=== PATIENT | female | born 1990 | race American Indian/Alaskan Native ===

== ENCOUNTER 2020-04-19 00:02 | Emergency (ER) | payer MEDICAID ==
--- NOTE | 2020-04-19 00:25 | Event Note ---
ED Screening Note Date of service: 04/19/20 ED Screening Note: 13-week patient presents with complaints of sudden onset of severe abdominal pain and vaginal bleeding She is A0 Currently following with an SAFETY ADMIN ASSISTANT per patient This initial assessment/diagnostic orders/clinical plan/treatment(s) is/are subject to change based on patients health status, clinical progression and re- assessment by fellow clinical providers in the ED. Further treatment and workup at subsequent clinical providers discretion. Patient/guardian urged not to elope from the ED as their condition may be serious if not clinically assessed and managed. Initial orders include: Labs Ultrasound
[2020-04-19 01:03] LABS: Basophils % (Auto) 0.3 % (0.0-1.8); Eosinophils # (Auto) 0.1 K/mm3 (0.0-0.4); Eosinophils % (Auto) 1.3 % (0.0-4.3); Hematocrit 40.1 % (30.3-42.9); Hemoglobin 13.1 gm/dl (10.1-14.3); Lymphocytes # (Auto) 2.3 K/mm3 (1.2-5.4); Lymphocytes % (Auto) 32.8 % (13.4-35.0); Mean Corpuscular HGB Conc 33 % (30-34); Mean Corpuscular Volume 89 fl (79-97); Monocytes # (Auto) 0.4 K/mm3 (0.0-0.8); Monocytes % (Auto) 5.9 % (0.0-7.3); Platelet Count 171 K/mm3 (140-440); Red Blood Count 4.52 M/mm3 (3.65-5.03); Red Cell Distribution Width 13.1 % (13.2-15.2)
[2020-04-19 01:20] LABS: Alanine Aminotransferase 12 units/L (7-56); Albumin 4.2 g/dL (3.9-5); Blood Urea Nitrogen 10 mg/dL (7-17); Calcium 9.3 mg/dL (8.4-10.2); Hemolysis Index 2
[2020-04-19 01:22] LABS: BUN/Creatinine Ratio 20
--- NOTE | 2020-04-19 01:23 | Emergency Department Report ---
ED HPI - General Chief complaint: Vaginal Bleeding Stated complaint: 13 WEEKS ;POSSIBLE MISCARRIAGE Time Seen by Provider: 04/19/20 00:54 Source: patient Mode of arrival: Ambulatory Limitations: No Limitations - History of Present Illness Initial comments: 29-year-old female, G4, P3, presents to the ED with vaginal bleeding. Patient s calvin she is 13 weeks . She reports onset of vaginal bleeding at approximately 9:30 PM this evening. She reports associated cramping with heavy bleeding and passage of clots while at home. Patient believes she has had a miscarriage. Patient reports she recently moved to [place] from [place], and has not yet established an [facility]. However, at 6 weeks gestation patient reports she was seen at [facility] and an ultrasound was done that showed a twin gestation IUP. MD Complaint: vaginal bleeding -: This evening Severity: moderate Quality: cramping Consistency: constant Improves with: none Worsens with: none Associated symptoms: vaginal bleeding Vaginal bleeding: clots :: Yes Number of weeks : 13 Pre- care: previous ultrasound confi - Related Data Previous Rx's Medication Instructions Recorded Last Taken Type Naproxen [Naprosyn] 500 mg PO BID #20 tablet 04/19/20 Unknown Rx traMADoL [Ultram] 50 mg PO Q6HR PRN #7 tablet 04/19/20 Unknown Rx ED Review of Systems ROS: Stated complaint: 13 WEEKS ;POSSIBLE MISCARRIAGE Other details as noted in HPI Comment: All other systems reviewed and negative Gastrointestinal: abdominal pain Genitourinary: as per HPI ED Past Medical Hx - Medications Home Medications: Home Medications Medication Instructions Recorded Confirmed Last Taken Type Naproxen [Naprosyn] 500 mg PO BID #20 tablet 04/19/20 Unknown Rx traMADoL [Ultram] 50 mg PO Q6HR PRN #7 tablet 04/19/20 Unknown Rx ED Physical Exam - General Limitations: No Limitations General appearance: alert, in no apparent distress - Head Head exam: Present: atraumatic, normocephalic - Eye Eye exam: Present: normal appearance, EOMI - ENT ENT exam: Present: mucous membranes moist - Neck Neck exam: Present: normal inspection - Respiratory Respiratory exam: Present: normal lung sounds bilaterally. Absent: respiratory distress - Cardiovascular Cardiovascular Exam: Present: regular rate, normal rhythm - GI/Abdominal GI/Abdominal exam: Present: soft, tenderness (Suprapubic). Absent: distended - External exam: Present: normal external exam Speculum exam: Present: vaginal bleeding, other (a few small clots removed from vault; oozing of blood from cervix) - Extremities Exam Extremities exam: Present: normal inspection - Neurological Exam Neurological exam: Present: alert, oriented X3 - Psychiatric Psychiatric exam: Present: normal affect, normal mood - Skin Skin exam: Present: warm, dry, intact, normal color ED Course Vital Signs 04/19/20 04/19/20 00:19 02:38 Temperature 97.9 F Pulse Rate 74 86 Respiratory 14 14 Rate Blood Pressure 96/57 Blood Pressure 113/50 [Right] O2 Sat by Pulse 99 99 Oximetry ED Medical Decision Making - Lab Data Result diagrams: 04/19/20 00:32 04/19/20 00:32 - Radiology Data Radiology results: report reviewed, image reviewed - Medical Decision Making 29-year-old female presents to ED with vaginal bleeding. Patient 13 weeks with twin gestation. Patient reports heavy bleeding with clots. hCG is 9000. Ultrasound shows thickened endometrium, no IUP, likely due to recent miscarriage. On speculum exam, a few clots were cleared from the vaginal vault, however no heavy vaginal bleeding present. Vital signs are stable. Hemoglobin is 13. Patient is Rh+. Will discharge at this time with instructions to follow-up with [facility]. Return precautions given. - Differential Diagnosis Ectopic, threatened , spontaneous Critical care attestation.: If time is entered above; I have spent that time in minutes in the direct care of this critically ill patient, excluding procedure time. ED Disposition Clinical Impression: Spontaneous miscarriage Disposition: - TO HOME OR SELFCARE Is pt being admited?: No Condition: Stable Instructions: Miscarriage, [id number], Managing Loss Prescriptions: Naproxen [Naprosyn] 500 mg PO BID #20 tablet traMADoL [Ultram] 50 mg PO Q6HR PRN #7 tablet PRN Reason: Pain Referrals: PRIMARY CARE, [Primary Care Provider] - 3-5 Days [facility] [Provider Group] - 2-3 Days Time of Disposition: 03:50
[2020-04-19 02:00] LABS: Bilirubin,Urine NEG (Negative); Blood,Urine LG (Negative); Color,Urine Red (Yellow); Urobilinogen,Urine < 2.0 mg/dL (<2.0)
[2020-04-19 02:02] LABS: Bacteria,Urine 1+ /HPF (Negative)
[2020-04-19 02:03] LABS: Protein,Urine >500 mg/dL (Negative); RBC,Urine > 182.0 /HPF (0.0-6.0)
[2020-04-19] MEDS ORDERED: HYDROcodone/ACETAMINOPHEN 5-325 MG TAB PO ONE (02:37)
--- NOTE | 2020-04-19 03:17 | Ultrasound Report ---
ULTRASOUND OBSTETRIC INDICATION / CLINICAL INFORMATION: bleeding in . TECHNIQUE: Transabdominal. COMPARISON: None available. FINDINGS: No IUP. Thickened heterogeneous endometrium measuring 2.2 cm. Uterus measures 9.7 x 4.6 x 8.1 cm. ADNEXA: No significant abnormality. FREE FLUID: None. ADDITIONAL FINDINGS: None. IMPRESSION: 1. No IUP. 2. Thickened irregular endometrium likely secondary to recent miscarriage Signer Name: Nikolai Hart MD Signed: 04/19/2020 3:12 AM Workstation Name: [id number]
[2020-04-19 04:07] VITALS: BP 119/60
== END 2020-04-19 04:05 | disposition home or self-care (01) ==
LOC: ED 00:02
DX: O03.9 Complete or unspecified spontaneous abortion without complication (principal); Z3A.13 13 weeks gestation of pregnancy; Z79.899 Other long term (current) drug therapy; Z88.8 Allergy status to other drugs, medicaments and biological substances
CPT/HCPCS: 36415; 76801; 80053; 81001; 84702; 85025; 86850; 86900; 86901; 87086

== ENCOUNTER 2020-05-07 16:28 | Emergency (ER) | payer MEDICAID ==
[2020-05-07 17:01] VITALS: BP 96/57
--- NOTE | 2020-05-07 17:33 | Emergency Department Report ---
ED Female HPI - General Chief complaint: Vaginal Bleeding Stated complaint: ABD PAIN Source: patient Mode of arrival: Ambulatory Limitations: No Limitations - History of Present Illness Initial comments: 29-year-old -[place] female presents to the emergency room reporting that she has heavy bleeding. Patient states she had a miscarriage on 04/19/2020 and had followed up with [facility] on 05/05/2020. Patient states she has gone through 16 pads today. Patient was seen here had an ultrasound that showed no IUP with hCG levels greater than 9000. MD Complaint: vaginal bleeding Onset/Timin -: week(s) Location: suprapubic Severity: moderate, severe Quality: cramping Consistency: constant Improves with: none Worsens with: none Are you Now?: No Associated Symptoms: vaginal bleeding, abdominal pain. denies: nausea/vomiting, fever/chills - Related Data Sexually active: Yes Previous Rx's Medication Instructions Recorded Last Taken Type Naproxen [Naprosyn] 500 mg PO BID #20 tablet 04/19/20 Unknown Rx traMADoL [Ultram] 50 mg PO Q6HR PRN #7 tablet 04/19/20 Unknown Rx Allergies Allergy/AdvReac Type Severity Reaction Status Date / Time ibuprofen Allergy Hives Verified 04/19/20 04:01 ED Review of Systems ROS: Stated complaint: ABD PAIN Other details as noted in HPI Comment: All other systems reviewed and negative ED Past Medical Hx - Past Medical History Previous Medical History?: No - Surgical History Past Surgical History?: No - Social History Smoking Status: Never Smoker Substance Use Type: None - Medications Home Medications: Home Medications Medication Instructions Recorded Confirmed Last Taken Type Naproxen [Naprosyn] 500 mg PO BID #20 tablet 04/19/20 Unknown Rx traMADoL [Ultram] 50 mg PO Q6HR PRN #7 tablet 04/19/20 Unknown Rx ED Physical Exam - General Limitations: No Limitations General appearance: alert, in no apparent distress - Head Head exam: Present: atraumatic, normocephalic - Eye Eye exam: Present: normal appearance - Neck Neck exam: Present: normal inspection - Respiratory Respiratory exam: Present: normal lung sounds bilaterally. Absent: respiratory distress - Cardiovascular Cardiovascular Exam: Present: regular rate, normal rhythm. Absent: systolic murmur, diastolic murmur, rubs, gallop - GI/Abdominal GI/Abdominal exam: Present: soft. Absent: distended, tenderness - Back Exam Back exam: Present: normal inspection - Neurological Exam Neurological exam: Present: alert, oriented X3, normal gait - Psychiatric Psychiatric exam: Present: normal affect, normal mood - Skin Skin exam: Present: warm, dry, intact, normal color. Absent: rash ED Course Vital Signs 05/07/20 17:00 Temperature 98.8 F Pulse Rate 71 Respiratory 16 Rate Blood Pressure 96/57 O2 Sat by Pulse 99 Oximetry ED Medical Decision Making - Lab Data Result diagrams: 05/07/20 17:43 - Medical Decision Making 29-year-old -[place] female presents to the emergency room reporting that she has heavy bleeding. Patient states she had a miscarriage on 04/19/2020 and had followed up with [facility] on 05/05/2020. Patient states she has gone through 16 pads today. Patient was seen here had an ultrasound that showed no I UP with hCG levels greater than 9000. hCG 238. No signs of anemia. Discussed with patient to follow-up with [facility]. Vital signs are stable. Critical care attestation.: If time is entered above; I have spent that time in minutes in the direct care of this critically ill patient, excluding procedure time. ED Disposition Clinical Impression: Vaginal bleeding, Miscarriage Disposition: DC-01 TO HOME OR SELFCARE Is pt being admited?: No Does the pt Need Aspirin: No Condition: Stable Instructions: Dysfunctional Uterine Bleeding Additional Instructions: hCG levels is 238. I recommend that you follow-up with your [facility]. Increase your fluid intake. Referrals: [facility] [Provider Group] - 3-5 Days Forms: Work/School Release Form(ED)
[2020-05-07 17:52] LABS: Basophils % (Auto) 0.3 % (0.0-1.8); Eosinophils % (Auto) 0.6 % (0.0-4.3); Hematocrit 39.7 % (30.3-42.9); Hemoglobin 13.2 gm/dl (10.1-14.3); Lymphocytes # (Auto) 1.4 K/mm3 (1.2-5.4); Lymphocytes % (Auto) 21.4 % (13.4-35.0); Mean Corpuscular HGB Conc 33 % (30-34); Mean Corpuscular Volume 89 fl (79-97); Monocytes # (Auto) 0.5 K/mm3 (0.0-0.8); Monocytes % (Auto) 7.3 % (0.0-7.3); Platelet Count 186 K/mm3 (140-440); Red Blood Count 4.48 M/mm3 (3.65-5.03); Red Cell Distribution Width 12.9 % (13.2-15.2)
[2020-05-07 18:46] LABS: Bilirubin,Urine NEG (Negative); Blood,Urine LG (Negative); Color,Urine Red (Yellow); Mucus,Urine 2+ /HPF; Urobilinogen,Urine < 2.0 mg/dL (<2.0)
[2020-05-07 18:48] LABS: RBC,Urine > 182.0 /HPF (0.0-6.0)
== END 2020-05-07 20:01 | disposition home or self-care (01) ==
LOC: ED 16:28
DX: N93.9 Abnormal uterine and vaginal bleeding, unspecified (principal); R10.2 Pelvic and perineal pain; Z79.899 Other long term (current) drug therapy; Z88.8 Allergy status to other drugs, medicaments and biological substances
CPT/HCPCS: 36415; 81001; 84702; 85025; 87086

== ENCOUNTER 2020-11-14 09:59 | Emergency (ER) | payer MEDICAID ==
[2020-11-14] MEDS ORDERED: ACETAMINOPHEN 325 MG TAB PO ONE (12:17)
--- NOTE | 2020-11-14 12:39 | Ultrasound Report ---
ULTRASOUND OBSTETRIC REASON FOR EXAM: 9 weeks, cramping, bleeding TECHNIQUE: Transabdominal and transvaginal ultrasound was performed to evaluate a first trimester pre gnancy. COMPARISON: 04/19/2020 FINDINGS: Uterus measures 9.2 x 3.3 x 5.1 cm. Endometrial stripe is not thickened, measuring 3 mm. No IUP is vi sualized. Normal sonographic appearance of the ovaries. No significant cystic or solid mass in either adnexa. No significant free fluid. IMPRESSION: No IUP visualized. Findings consistent with of unknown location. Findings could reflect an early intrauterine , occult ectopic , or recent spontaneous . In a hemodyna mically stable patient, recommend follow-up with pelvic ultrasound in 7-10 days. Signer Name: Alvin Amador MD Signed: 11/14/2020 12:35 PM Workstation Name: [id number]
[2020-11-14 12:50] LABS: Basophils % (Auto) 0.6 % (0.0-1.8); Eosinophils # (Auto) 0.1 K/mm3 (0.0-0.4); Eosinophils % (Auto) 3.6 % (0.0-4.3); Hematocrit 37.3 % (30.3-42.9); Hemoglobin 12.2 gm/dl (10.1-14.3); Lymphocytes # (Auto) 1.6 K/mm3 (1.2-5.4); Lymphocytes % (Auto) 39.8 % (13.4-35.0); Mean Corpuscular HGB Conc 33 % (30-34); Mean Corpuscular Volume 86 fl (79-97); Monocytes # (Auto) 0.4 K/mm3 (0.0-0.8); Monocytes % (Auto) 9.6 % (0.0-7.3); Platelet Count 191 K/mm3 (140-440); Red Blood Count 4.33 M/mm3 (3.65-5.03); Red Cell Distribution Width 13.7 % (13.2-15.2)
--- NOTE | 2020-11-14 13:13 | Emergency Department Report ---
ED HPI - General Chief complaint: Vaginal Bleeding Stated complaint: MISCARRIAGE Time Seen by Provider: 11/14/20 11:45 Source: patient Mode of arrival: Ambulatory Limitations: No Limitations - History of Present Illness Initial comments: Patient is a 30-year-old female presents emergency room complaints of vaginal bleeding that began yesterday. She states yesterday she was having heavy bleeding and passing clots but it improved significantly today. States she is also been having lower abdominal cramping and lower back pain. She states y esterday it felt like "she was in labor." Patient states her [facility] MAIL [facility]RIER is a [facility] and she is approximately 9 weeks . Patient states that she had appointment next week with her analysis mgr on 11/17/20. She denies any fever, nausea, vomiting, diarrhea, urinary symptoms. PMHx heart murmur. Allergy to ibuprofen. /P: 3/A: 1 - Related Data Previous Rx's Medication Instructions Recorded Last Taken Type Naproxen [Naprosyn] 500 mg PO BID #20 tablet 04/19/20 Unknown Rx traMADoL [Ultram] 50 mg PO Q6HR PRN #7 tablet 04/19/20 Unknown Rx Allergies Allergy/AdvReac Type Severity Reaction Status Date / Time ibuprofen Allergy Hives Verified 04/19/20 04:01 ED Review of Systems ROS: Stated complaint: MISCARRIAGE Other details as noted in HPI Comment: All other systems reviewed and negative ED Past Medical Hx - Past Medical History Previous Medical History?: Yes Additional medical history: heart murmur, Miscarriage x 2 - Surgical History Past Surgical History?: No - Social History Smoking Status: Never Smoker Substance Use Type: None - Medications Home Medications: Home Medications Medication Instructions Recorded Confirmed Last Taken Type Naproxen [Naprosyn] 500 mg PO BID #20 tablet 04/19/20 Unknown Rx traMADoL [Ultram] 50 mg PO Q6HR PRN #7 tablet 04/19/20 Unknown Rx ED Physical Exam - General Limitations: No Limitations General appearance: alert, in no apparent distress - Head Head exam: Present: atraumatic, normocephalic - Eye Eye exam: Present: normal appearance - ENT ENT exam: Present: mucous membranes moist - Respiratory Respiratory exam: Present: normal lung sounds bilaterally. Absent: respiratory distress, wheezes, rales, rhonchi, stridor, chest wall tenderness, accessory muscle use, decreased breath sounds, prolonged expiratory - Cardiovascular Cardiovascular Exam: Present: regular rate, normal rhythm, normal heart sounds. Absent: systolic murmur, diastolic murmur, rubs, gallop - GI/Abdominal GI/Abdominal exam: Present: soft, normal bowel sounds. Absent: distended, tenderness, guarding, rebound, rigid - Neurological Exam Neurological exam: Present: alert, oriented X3 - Psychiatric Psychiatric exam: Present: normal affect, normal mood - Skin Skin exam: Present: warm, dry, intact ED Course Vital Signs 11/14/20 11/14/20 11/14/20 10:11 13:05 13:06 Temperature 98.0 F Pulse Rate 62 64 Respiratory 16 14 16 Rate Blood Pressure 92/59 Blood Pressure 92/64 [Right] O2 Sat by Pulse 100 100 100 Oximetry 11/14/20 13:47 Temperature Pulse Rate 60 Respiratory 12 Rate Blood Pressure Blood Pressure 90/48 [Right] O2 Sat by Pulse 100 Oximetry ED Medical Decision Making - Lab Data Result diagrams: 11/14/20 12:40 11/14/20 12:40 Lab Results 11/14/20 11/14/20 11/14/20 Range/Units 12:40 12:40 12:40 WBC 4.0 L (4.5-11.0) K/mm3 RBC 4.33 (3.65-5.03) M/mm3 Hgb 12.2 (10.1-14.3) gm/dl Hct 37.3 (30.3-42.9) % MCV 86 (79-97) fl MCH 28 (28-32) pg MCHC 33 (30-34) % RDW 13.7 (13.2-15.2) % Plt Count 191 (140-440) K/mm3 Lymph % (Auto) 39.8 H (13.4-35.0) % [place] % (Auto) 9.6 H (0.0-7.3) % Eos % (Auto) 3.6 (0.0-4.3) % Baso % (Auto) 0.6 (0.0-1.8) % Lymph # (Auto) 1.6 (1.2-5.4) K/mm3 [place] # (Auto) 0.4 (0.0-0.8) K/mm3 Eos # (Auto) 0.1 (0.0-0.4) K/mm3 Baso # (Auto) 0.0 (0.0-0.1) K/mm3 Seg Neutrophils % 46.4 (40.0-70.0) % Seg Neutrophils # 1.9 (1.8-7.7) K/mm3 Sodium 138 (137-145) mmol/L Potassium 4.4 (3.6-5.0) mmol/L Chloride 104.5 (98-107) mmol/L Carbon Dioxide 27 (22-30) mmol/L Anion Gap 11 mmol/L BUN 12 (7-17) mg/dL Creatinine 0.5 L (0.6-1.2) mg/dL Estimated GFR > 60 ml/min BUN/Creatinine Ratio 24 % Glucose 86 (65-100) mg/dL Calcium 9.4 (8.4-10.2) mg/dL Total Bilirubin 0.50 (0.1-1.2) mg/dL AST 18 (5-40) units/L ALT 13 (7-56) units/L Alkaline Phosphatase 55 (35-129) units/L Total Protein 7.6 (6.3-8.2) g/dL Albumin 4.1 (3.9-5) g/dL Albumin/Globulin Ratio 1.2 % HCG, Quant < 2 (0-4) mIU/mL Blood Type Ord Rhogam Gestat Weeks WEEKS 11/14/20 Range/Units 13:01 WBC (4.5-11.0) K/mm3 RBC (3.65-5.03) M/mm3 Hgb (10.1-14.3) gm/dl Hct (30.3-42.9) % MCV (79-97) fl MCH (28-32) pg MCHC (30-34) % RDW (13.2-15.2) % Plt Count (140-440) K/mm3 Lymph % (Auto) (13.4-35.0) % [place] % (Auto) (0.0-7.3) % Eos % (Auto) (0.0-4.3) % Baso % (Auto) (0.0-1.8) % Lymph # (Auto) (1.2-5.4) K/mm3 [place] # (Auto) (0.0-0.8) K/mm3 Eos # (Auto) (0.0-0.4) K/mm3 Baso # (Auto) (0.0-0.1) K/mm3 Seg Neutrophils % (40.0-70.0) % Seg Neutrophils # (1.8-7.7) K/mm3 Sodium (137-145) mmol/L Potassium (3.6-5.0) mmol/L Chloride (98-107) mmol/L Carbon Dioxide (22-30) mmol/L Anion Gap mmol/L BUN (7-17) mg/dL Creatinine (0.6-1.2) mg/dL Estimated GFR ml/min BUN/Creatinine Ratio % Glucose (65-100) mg/dL Calcium (8.4-10.2) mg/dL Total Bilirubin (0.1-1.2) mg/dL AST (5-40) units/L ALT (7-56) units/L Alkaline Phosphatase (35-129) units/L Total Protein (6.3-8.2) g/dL Albumin (3.9-5) g/dL Albumin/Globulin Ratio % HCG, Quant (0-4) mIU/mL Blood Type A POSITIVE Ord Rhogam Gestat Weeks <11 WEEKS Vital Signs 11/14/20 11/14/20 11/14/20 10:11 13:05 13:06 Temperature 98.0 F Pulse Rate 62 64 Respiratory 16 14 16 Rate Blood Pressure 92/59 Blood Pressure 92/64 [Right] O2 Sat by Pulse 100 100 100 Oximetry 11/14/20 13:47 Temperature Pulse Rate 60 Respiratory 12 Rate Blood Pressure Blood Pressure 90/48 [Right] O2 Sat by Pulse 100 Oximetry - Radiology Data Radiology results: report reviewed Ordering Physician: YVETTE GALEANA Date of Service: 11/14/20 Procedure(s): US OB <= 14 weeks fetus Accession Number(s): [id number] cc: YVETTE GALEANA ULTRASOUND OBSTETRIC REASON FOR EXAM: 9 weeks, cramping, bleeding TECHNIQUE: Transabdominal and transvaginal ultrasound was performed to evaluate a first trimester . COMPARISON: 04/19/2020 FINDINGS: Uterus measures 9.2 x 3.3 x 5.1 cm. Endometrial stripe is not thickened, measuring 3 mm. No IUP is visualized. Normal sonographic appearance of the ovaries. No significant cystic or solid mass in either adnexa. No significant free fluid. IMPRESSION: No IUP visualized. Findings consistent with of unknown location. Findings could reflect an early intrauterine , occult ectopic , or recent spontaneous . In a hemodynamically stable patient, recommend follow-up with pelvic ultrasound in 7- 10 days. Signer Name: Manuel Hernandez MD Signed: 11/14/2020 12:35 PM Workstation Name: [id number] Transcribed By: ADRIANE Dictated By: MANUEL HERNANDEZ MD Electronically Authenticated By: MANUEL HERNANDEZ MD Signed Date/Time: 11/14/20 1235 DD/ 1233 TD/TT: - Medical Decision Making Patient is a 30-year-old female presents emergency room complaints of vaginal bleeding that began yesterday. She states yesterday she was having heavy bleeding and passing clots but it improved significantly today. States she is also been having lower abdominal cramping and lower back pain. She states yesterday it felt like "she was in labor." Patient states her [facility] is a [facility] and she is approximately 9 weeks . Patient states that she had appointment next week with her analysis mgr on 11/17/20. She denies any fever, nausea, vomiting, diarrhea, urinary symptoms. PMHx heart murmur. Allergy to ibuprofen. /P: 3/A: 1. No abdominal tenderness on exam, no guarding, no rebound, no rigidity, no peritoneal signs. H&H is normal, hCG quant is less than 2, patient is Rh+. Ultrasound: No IUP visualized. Findings consistent with of unknown location. Findings could reflect an early intrauterine , occult ectopic , or recent spontaneous . In a hemodynamically stable patient, recommend follow-up with pelvic ultrasound in 7-10 days. Given that hcg quant is negative, difficult to determine if patient was . She reports that she had a positive urine test at her [facility] but she had had no lab work or ultrasound performed. Advised patient May take Tylenol as needed for any pain. Increase your fluid intake. Follow-up with your [facility]. Return to emergency room for any new or worsening symptoms. Critical care attestation.: If time is entered above; I have spent that time in minutes in the direct care of this critically ill patient, excluding procedure time. ED Disposition Clinical Impression: Vaginal bleeding, Abdominal cramping Low back pain Qualifiers: Chronicity: acute Back pain laterality: unspecified Sciatica presence: without sciatica Qualified Code(s): M54.5 - Low back pain Disposition: 01 HOME / SELF CARE / HOMELESS Is pt being admited?: No Does the pt Need Aspirin: No Condition: Stable Additional Instructions: May take Tylenol as needed for any pain. Increase your fluid intake. Follow-up with your [facility]. Return to emergency room for any new or worsening symptoms. Referrals: [facility] [Provider Group] - 2-3 Days Time of Disposition: 13:37 Print Language: SWISS
[2020-11-14 13:17] LABS: Alanine Aminotransferase 13 units/L (7-56); Albumin 4.1 g/dL (3.9-5); Blood Urea Nitrogen 12 mg/dL (7-17); Calcium 9.4 mg/dL (8.4-10.2); Hemolysis Index 7
[2020-11-14 13:34] LABS: BUN/Creatinine Ratio 24
[2020-11-14 13:48] VITALS: BP 90/48
== END 2020-11-14 14:19 | disposition home or self-care (01) ==
LOC: ED 09:59
DX: O20.9 Hemorrhage in early pregnancy, unspecified (principal); O26.891 Other specified pregnancy related conditions, first trimester; Z3A.09 9 weeks gestation of pregnancy; R10.30 Lower abdominal pain, unspecified; M54.5 Low back pain; R01.1 Cardiac murmur, unspecified; Z88.6 Allergy status to analgesic agent
CPT/HCPCS: 36415; 76801; 76817; 80053; 84702; 85025; 86900; 86901; 96372; 99284

== ENCOUNTER 2021-07-08 15:29 | Emergency (ER) | payer MEDICAID ==
[2021-07-08 21:24] LABS: Bilirubin,Urine NEG (Negative); Blood,Urine LG (Negative); Color,Urine Yellow (Yellow); Protein,Urine <15 mg/dL mg/dL (Negative)
[2021-07-08 21:41] LABS: Bacteria,Urine 1+ /HPF (Negative); HCG Qualitative,Urine Negative (Negative); Mucus,Urine FEW /HPF
--- NOTE | 2021-07-08 22:09 | Emergency Department Report ---
ED Female HPI - General Chief complaint: Urogenital-Female Stated complaint: UTI Source: patient Mode of arrival: Ambulatory Limitations: No Limitations - History of Present Illness Initial comments: Patient is a 31-year-old -[place] female with no past medical history presents to the ED with complaint of acute onset persistent suprapubic pressure, urinary frequency and urgency and low back pain for the last 1 week. Patient states that the symptoms are intermittent and persistent and worse whenever she has the urge to void urine. Patient denies traumatic injury, dysuria, vaginal bleeding, vaginal discharge, dyspareunia, chest pain and shortness of breath, nausea and vomiting, heavy lifting, fever and chills. MD Complaint: pelvic pain (Suprapubic pressure), other (Urinary frequency and urgency and low back pain) -: Sudden, week(s) (1) Location: suprapubic (Suprapubic pressure) Radiation: suprapubic, other (Low back) Severity: moderate Severity scale (0 -10): 4 Quality: dull, aching Consistency: intermittent Improves with: none Worsens with: urination Are you Now?: No Associated Symptoms: denies other symptoms, abdominal pain (Suprapubic pressure). denies: vaginal discharge, vaginal bleeding, nausea/vomiting, fever/chills, headaches, loss of appetite, dysuria, hematuria, rash, seizure, shortness of breath, syncope, weakness - Related Data Sexually active: Yes : 4 Para: 3 A: 1 Previous Rx's Medication Instructions Recorded Last Taken Type traMADoL [Ultram] 50 mg PO Q6HR PRN #7 tablet 04/19/20 Unknown Rx Naproxen [Naprosyn TAB] 500 mg PO BID #20 tablet 07/08/21 Unknown Rx cephALEXin [Keflex] 500 mg PO Q8HR #30 cap 07/08/21 Unknown Rx Allergies Allergy/AdvReac Type Severity Reaction Status Date / Time ibuprofen Allergy Hives Verified 04/19/20 04:01 ED Review of Systems ROS: Stated complaint: UTI Other details as noted in HPI Constitutional: denies: chills, fever Eyes: denies: eye pain, eye discharge, vision change ENT: denies: ear pain, throat pain Respiratory: denies: cough, shortness of breath, wheezing Cardiovascular: denies: chest pain, palpitations Endocrine: no symptoms reported Gastrointestinal: abdominal pain (Suprapubic pressure). denies: nausea, vomiting, diarrhea Genitourinary: urgency, frequency. denies: dysuria, hematuria, discharge, abnormal menses, dyspareunia Musculoskeletal: back pain (Low back pain). denies: joint swelling, arthralgia Skin: denies: rash, lesions Neurological: denies: headache, weakness, paresthesias Psychiatric: denies: anxiety, depression Hematological/Lymphatic: denies: easy bleeding, easy bruising ED Past Medical Hx - Past Medical History Additional medical history: heart murmur, Miscarriage x 2 - Social History Smoking Status: Never Smoker Substance Use Type: None - Medications Home Medications: Home Medications Medication Instructions Recorded Confirmed Last Taken Type traMADoL [Ultram] 50 mg PO Q6HR PRN #7 tablet 04/19/20 Unknown Rx Naproxen [Naprosyn TAB] 500 mg PO BID #20 tablet 07/08/21 Unknown Rx cephALEXin [Keflex] 500 mg PO Q8HR #30 cap 07/08/21 Unknown Rx ED Physical Exam - General Limitations: No Limitations General appearance: alert, in no apparent distress - Head Head exam: Present: atraumatic, normocephalic, normal inspection - Eye Eye exam: Present: normal appearance, PERRL, EOMI Pupils: Present: normal accommodation - ENT ENT exam: Present: normal exam, normal orophraynx, mucous membranes moist, TM's normal bilaterally, normal external ear exam - Neck Neck exam: Present: normal inspection, full ROM - Respiratory Respiratory exam: Present: normal lung sounds bilaterally. Absent: respiratory distress, wheezes, rales, rhonchi, chest wall tenderness, accessory muscle use, prolonged expiratory - Cardiovascular Cardiovascular Exam: Present: regular rate, normal rhythm, normal heart sounds. Absent: systolic murmur, diastolic murmur, rubs, gallop - GI/Abdominal GI/Abdominal exam: Present: soft, normal bowel sounds. Absent: tenderness, guarding, rebound, hyperactive bowel sounds, hypoactive bowel sounds, organomegaly - Extremities Exam Extremities exam: Present: normal inspection, full ROM, normal capillary refill. Absent: tenderness - Back Exam Back exam: Present: normal inspection, full ROM. Absent: tenderness, CVA tenderness (R), CVA tenderness (L), muscle spasm, paraspinal tenderness, vertebral tenderness - Neurological Exam Neurological exam: Present: alert, oriented X3, CN II-XII intact, normal gait, reflexes normal - Psychiatric Psychiatric exam: Present: normal affect, normal mood - Skin Skin exam: Present: warm, dry, intact, normal color. Absent: rash ED Course Vital Signs 07/08/21 16:01 Temperature 98.5 F Pulse Rate 60 Respiratory 18 Rate Blood Pressure 96/53 [Right] O2 Sat by Pulse 99 Oximetry ED Medical Decision Making - Medical Decision Making This is a 31-year-old -[place] female with no past medical history presents to the ED with complaint of acute onset persistent suprapubic pressure, urinary frequency and urgency and low back pain for the last 1 week. Patient states that the symptoms are intermittent and persistent and worse whenever she has the urge to void urine. In the ED, patient is alert and oriented x3 and is not in any distress. Patient is hemodynamically stable. Urinalysis showed mild urinary tract infection. Patient was discharged home on medications and advised to follow-up with her primary care physician in 5 to 7 days for reevaluation. Patient advised return to the ED immediately if symptoms get worse - Differential Diagnosis UTI; muscle spasm; bladder spasms Critical care attestation.: If time is entered above; I have spent that time in minutes in the direct care of this critically ill patient, excluding procedure time. ED Disposition Clinical Impression: Acute urinary tract infection Disposition: HOME / SELF CARE / HOMELESS Is pt being admited?: No Does the pt Need Aspirin: No Condition: Stable Instructions: Urinary Tract Infection, Adult, [id number] Additional Instructions: Take medication with food, drink plenty of fluids and follow-up with your primary care physician in 7 to 10 days for reevaluation. Return to the ED immediately if symptoms get worse. Prescriptions: cephALEXin [Keflex] 500 mg PO Q8HR #30 cap Naproxen [Naprosyn TAB] 500 mg PO BID #20 tablet Referrals: [facility] [Provider Group] - 7-10 days Forms: Work/School Release Form(ED) Time of Disposition: 22:10 Print Language: SWEDISH
[2021-07-09 01:48] VITALS: BP 113/73
== END 2021-07-08 22:56 | disposition home or self-care (01) ==
LOC: ED 15:29
DX: N39.0 Urinary tract infection, site not specified (principal); M54.50 Low back pain, unspecified; Z88.6 Allergy status to analgesic agent; Z79.899 Other long term (current) drug therapy
CPT/HCPCS: 81001; 81025; 99283

== ENCOUNTER 2021-11-25 19:49 | Emergency (ER) | payer MEDICAID ==
[2021-11-25 19:55] VITALS: BP 100/62
== END 2021-11-26 06:58 ==
LOC: ED 19:49
DX: R11.10 Vomiting, unspecified (principal); Z53.21 Procedure and treatment not carried out due to patient leaving prior to being seen by health care provider